=== PATIENT | male | born 1980 | race Caucasian/White ===

== ENCOUNTER 2018-11-24 06:22 | Emergency (ER) | payer OTHER ==
--- NOTE | 2018-11-24 06:25 | PDOC ---
History of Present Illness - General Chief Complaint: Allergic Reaction Stated Complaint: POSS ALLERGIC REACTION Time Seen by Provider: 11/24/18 06:24 - History of Present Illness Initial Comments: 11/24/18 06:29 This 38-year-old man,s/p gastric bypass bariatric surgery 08/14 presents with possible ALLERGIC reaction and also substernal chest pain that began soon after awakening at 4:00 AM today (He usually awakens at this hour). Patient states that since his bypass surgery, he has intermittent episodes of substernal chest pain. These have been found to be related to hypoglycemia. Most recent episode prior to today was 3 days ago when he presented to another ER. At that time, his blood sugar was found to be 47. Patient was not admitted and chest pain resolved. Although the patient had chest pain, he continued to prepare to go to work, including eating breakfast: He ate [place] yogurt with apricot and 2 glasses of orange juice (to treat any hypoglycemia that might be present). The patient states he had never eaten apricots before and as he was traveling to work began to feel his lips becoming numb. When he got to work he had a coworker administer his EpiPen to him. He denies difficulty swallowing/ shortness breath/rash and lip numbness has improved. Besides intermittent substernal chest pain, the patient has frequent nausea/ vomiting after meals. He has seen his bariatric surgeon in the last month and was told that he would likely need an endoscopic revision of the gastric outlet. Follow-up is scheduled for next week. Cardiac risk factors: Positive for family history of (father had first AR at age 35); negative for HTN/DM/smoking/HLD No daily medications; OTC naproxen every other day for headaches ALLERGIES: NO KNOWN DRUG ALLERGIES; food ALLERGIES as above PMH: History of morbid obesitylost 140 pounds postoperatively Severe asthma preoperatively; resolved since bypass prediabetic preoperatively Abdominoplasty 08/16 Past History - Past Medical History Allergies/Adverse Reactions: Allergies Allergy/AdvReac Type Severity Reaction Status Date / Time apricot Allergy Verified 11/24/18 06:28 bridgette Allergy Verified 11/24/18 06:26 mayonnaise Allergy Verified 11/24/18 06:27 SEAFOOD Allergy Uncoded 11/24/18 06:27 Home Medications: Ambulatory Orders EPINEPHrine [Epinephrine] 0.3 mg IJ ONCE #1 box 11/24/18 Review of Systems - Review of Systems Able to Perform ROS?: Yes Comments:: 12 point review of systems is negative except for what is noted in the history of present illness *Physical Exam - Physical Exam Comments: GENERAL: Adult male, alert and oriented 3, in no acute distress; 120/74, 80/ min , 97.5F, pulse ox 100% on room air HEAD: Normal with no signs of trauma. EYES: PERRLA, EOMI, sclera anicteric, conjunctiva clear. ENT: Ears normal, nares patent, oropharynx clear without exudates. Moist mucous membranes. No significant lip/tongue/uvular edema; no stridor NECK: Normal range of motion, supple without lymphadenopathy, JVD, or masses. LUNGS: Breath sounds equal, clear to auscultation bilaterally. No wheezes, and no crackles. HEART:Regular rate and rhythm, normal S1 and S2 without murmur, rub or gallop. ABDOMEN:.normal bowel sounds No guarding,tenderness or rebound.No masses No distention. Well-healed horizontal surgical incision EXTREMITIES: Normal range of motion, no edema. No clubbing or cyanosis. No erythema, or tenderness. NEUROLOGICAL: Cranial nerves II through XII grossly intact. Normal speech. No focal neurological deficits. MUSCULOSKELETAL: Back non-tender to palpation, no CVA tenderness SKIN: Warm, Dry, normal turgor, no rashes or lesions noted. Twelve-lead electrocardiogram performed and preliminary interpretation by me: Normal sinus rhythm at 66 bpm; some sinus arrhythmia is present. [place], intervals and wave forms are all normal. No evidence of acute ST or T-wave abnormalities ED Treatment Course - LABORATORY CBC & Chemistry Diagram: 11/24/18 07:25 11/24/18 07:11 Medical Decision Making - Medical Decision Making 11/24/18 06:49 This 38-year-old man with a history of morbid obesity, 2 years s/p gastric bypass surgery and subsequent significant weight loss, presents with 2 problems : 1-substernal chest pain that patient typically has felt in the past when he has hypoglycemic 2-possible ALLERGIC reaction. Patient had new food (apricots) this morning and soon felt numbness in his lips. EpiPen given to patient by a coworker prior to presentation. Symptoms (lip numbness) resolving. Finger stick glucose 106. Patient had 2 glasses of orange juice and yogurt earlier. Chest pain improving since presentation Patient has one risk factor (family history for coronary artery disease). lab evaluation of CBC/Chemistry profile/troponin will be sent 11/24/18 07:02 Case signed out to incoming physician at change of shift *DC/Admit/Observation/Transfer Diagnosis at time of Disposition: Atypical chest pain - Discharge Dispostion Disposition: HOME Condition at time of disposition: Improved - Prescriptions Prescriptions: EPINEPHrine [Epinephrine] 0.3 mg IJ ONCE #1 box - Referrals Referrals: Charlene Muniz [Other] - Patient Instructions Printed Discharge Instructions: DI for Atypical Chest Pain Additional Instructions: Return to the emergency department immediately with ANY new, persistent or worsening symptoms. Please stop eating appricots - follow up with an allergy doctor. You MUST call and follow up with Dr. Muniz as scheduled for further evaluation of your symptoms. Results were discussed with you. Please make sure your doctor reviews the results of your emergency evaluation. If you had any xrays during your visit, it was read preliminarily by myself, a Radiologist will review it and if there are any additional findings we will call you. Print Language: DANISH - Post Discharge Activity
[2018-11-24 06:35] VITALS: BP 120/74; PULSE 80; TEMP 97.5; BMI 32.5
[2018-11-24 08:00] LABS: BASO % 0.6 % (0-2.0); EOS % 1.8 % (0-4.5); HEMATOCRIT 40.7 % (35.4-49); HEMOGLOBIN 13.2 GM/dl (11.7-16.9); LYMPH % 21.7 % (8-40); MCH 29.1 pg (25.7-33.7); MCHC 32.5 g/dl (32.0-35.9); MEAN CELL VOLUME 89.8 fl (80-96); MEAN PLT VOLUME 8.3 fl (7.5-11.1); MONO % 8.7 % (3.8-10.2); NEUT % 67.2 % (42.8-82.8); PLATELET COUNT 300 K/MM3 (134-434); RBC 4.54 M/mm3 (4.00-5.60); RDW 11.8 % (11.9-15.9); WHITE BLOOD COUNT 7.2 K/mm3 (4.0-10.8)
[2018-11-24 08:03] LABS: ALBUMIN 3.4 g/dl (3.4-5.0); ALK PHOS 116 U/L (45-117); ANION GAP 6 MMOL/L (8-16); BILIRUBIN,TOTAL 0.6 mg/dl (0.2-1); BLOOD UREA NITROGEN 12 mg/dl (7-18); CALCIUM 8.4 mg/dl (8.5-10); CHLORIDE 104 mmol/L (98-107); CO2 25 mmol/L (21-32); CREATININE 0.7 mg/dl (0.55-1.3); GLUCOSE,RANDOM 99 mg/dl (74-106); POTASSIUM 3.8 mmol/L (3.5-5.1); SGOT/AST 23 U/L (15-37); SGPT/ALT 23 U/L (13-61); SODIUM 135 mmol/L (136-145); TOT PROT 6.4 g/dl (6.4-8.2)
--- NOTE | 2018-11-24 09:18 | PDOC ---
*Physical Exam - Vital Signs Last Vital Signs Temp Pulse Resp BP Pulse Ox 97.5 F L 80 15 120/74 100 11/24/18 06:32 11/24/18 06:32 11/24/18 06:32 11/24/18 06:32 11/24/18 06:32 - Physical Exam Comments: 11/24/18 09:07 Pt signed out to me from Dr. Ro pt is a 38y M s/p gastric bypass and abdominoplasty presents with chest pain. Pt states he woke up this morning around 4 for work and started feeling a squeezing like chest pain that was intermittent and worsened when he went to work. He has had similar episodes of pain in the past since his gastric bypass and was associated with low blood sugar (last episode was on wednesday where hs BGM was 46 where he went to [facility] an evaluation and was discharged. It is thought that his hypoglycemia is associated with less PO intake - notes he can only tolerate very smalla pipo of food ('half a chldrens portion') but he eats approx 6 times a day - has followed up with his bariatric surgeon who was going to revise his bypass in the near future. today, after onset of his pain while at work, he ate an apricot yogurt as he thought it may be related to his blood sugar.. he then started feeling tingling around his mouth, on his forhead and finger tips, and gave himself an epipen as he thought the symptoms may be related to hypoglycemia. denies any associated sypmtoms with exertion ( notse he go to the gym every day to lift or do cardio and has never had these symtoms when exerting himself). notse that typically these sypmtoms resolve on their own. currently pt notse he feels improved general: no acute distress, well nourished card: rrr, no mrg pulm: no wheezing, no acute respiratory distress abd: soft nontender labs unremarkble including trops x 1 ekg wnl, no prior for comparison unclear if his tingling is an allergic reaction vs anxiety - but willhav ehim stop eating apricots until he follows up with an network support manager. will obtian repeat trop low suspicion for acs ?esophageal spasm? will continue to observe and anticpate dc if trop neg x2 pt has follow up appointment with his surgeon as wella s his PMD 11/24/18 10:48 ED Treatment Course - LABORATORY CBC & Chemistry Diagram: 11/24/18 07:25 11/24/18 07:11 - ADDITIONAL ORDERS Additional order review: Laboratory Results 11/24/18 11/24/18 11/24/18 07:25 07:11 06:45 Sodium 135 L Potassium 3.8 Chloride 104 Carbon Dioxide 25 Anion Gap 6 L BUN 12 Creatinine 0.7 Creat Clearance w eGFR 127.60 POC Glucometer 106 Random Glucose 99 Calcium 8.4 L Total Bilirubin 0.6 AST 23 ALT 23 Alkaline Phosphatase 116 Creatine Kinase 109 Troponin I < 0.03 Total Protein 6.4 Albumin 3.4 11/24/18 11/24/18 07:25 06:45 RBC 4.54 MCV 89.8 MCHC 32.5 RDW 11.8 L MPV 8.3 Neutrophils % 67.2 Lymphocytes % 21.7 Monocytes % 8.7 Eosinophils % 1.8 Basophils % 0.6 POC Glucometer 106 - RADIOLOGY Radiology Studies Ordered: Category Date Time Status CHEST PA & LAT [RAD] Stat Radiology 11/24/18 09:04 Ordered Medical Decision Making - Medical Decision Making 11/24/18 10:36 repeat trop neg pt feeling improved will dc with fu with pmd and his sugeon return percautions were discussed *DC/Admit/Observation/Transfer Diagnosis at time of Disposition: Atypical chest pain - Discharge Dispostion Disposition: HOME Condition at time of disposition: Improved Decision to Admit order: No - Prescriptions Prescriptions: EPINEPHrine [Epinephrine] 0.3 mg IJ ONCE #1 box - Referrals Referrals: Charlene Muniz [Other] - Patient Instructions Printed Discharge Instructions: DI for Atypical Chest Pain Additional Instructions: Return to the emergency department immediately with ANY new, persistent or worsening symptoms. Please stop eating appricots - follow up with an allergy doctor. You MUST call and follow up with Dr. Muniz as scheduled for further evaluation of your symptoms. Results were discussed with you. Please make sure your doctor reviews the results of your emergency evaluation. If you had any xrays during your visit, it was read preliminarily by myself, a Radiologist will review it and if there are any additional findings we will call you. Print Language: NORWEGIAN - Post Discharge Activity
[2018-11-24] MEDS ORDERED: ACETAMINOPHEN 325 MG TABLET (FP) PO ONE (10:03)
[2018-11-24] MEDS ORDERED: ACETAMINOPHEN 325 MG TABLET (FP) ONE (10:06)
--- NOTE | 2018-11-24 15:17 | EKG ---
Test Reason : Blood Pressure : / mmHG Vent. Rate : 066 BPM Atrial Rate : 066 BPM P-R Int : 142 ms QRS Dur : 102 ms QT Int : 406 ms P-R-T Axes : 051 058 039 degrees QTc Int : 425 ms NORMAL SINUS RHYTHM WITH SINUS ARRHYTHMIA NORMAL ECG NO PREVIOUS ECGS AVAILABLE Confirmed by TIESHA PRATER MD ([id number]) on 11/24/2018 3:17:10 PM Referred By: MD CASAREZ Confirmed By:TIESHA PRATER MD
== END 2018-11-24 11:04 | disposition home or self-care (01) ==
LOC: FER 06:22
DX: R07.89 Other chest pain (principal); Z98.84 Bariatric surgery status
CPT/HCPCS: 36415; 71046-TC-FY; 80053; 82550; 82962; 84484; 85025; 93005; 99283-25

== ENCOUNTER 2019-09-30 17:59 | Emergency (ER) | payer BC, OTHER ==
[2019-09-30] MEDS ORDERED: DIPHTH,PERTUSS(ACELL),TET 0.5 ML DISP.SYRIN IM ONE ×2 (18:07→18:23)
[2019-09-30] MEDS ORDERED: CLINDAMYCIN HCL 150 MG CAPSULE (FP) PO ONE (18:07)
[2019-09-30] MEDS ORDERED: CLINDAMYCIN HCL 150 MG CAPSULE (FP) ONE (18:22)
[2019-09-30 18:24] VITALS: BP 133/61; PULSE 87; TEMP 98.2; BMI 32.5
--- NOTE | 2019-09-30 18:44 | PDOC ---
History of Present Illness - General Chief Complaint: Injury Stated Complaint: RT KNEE LACERATION Time Seen by Provider: 09/30/19 18:01 - History of Present Illness Initial Comments: 09/30/19 18:39 39yo male with hx of htn/dm now off meds secondary gastric bypass sx presents for eval of R knee lac. Pt was cutting a tree down with an electric saw and was trying to pull the saw out of the tree and it flew back and cut his knee. Pt with a 3.5cm superficial lac to the medial aspect of the R knee. Pt with FROM of the knee. No joint pain. Last tetanus over 5 years ago. Pt denies all other complaints and injuries. Past History - Past Medical History Allergies/Adverse Reactions: Allergies Allergy/AdvReac Type Severity Reaction Status Date / Time amoxicillin Allergy Verified 09/30/19 18:01 apricot Allergy Verified 09/30/19 18:00 bridgette Allergy Verified 09/30/19 18:00 mayonnaise Allergy Verified 09/30/19 18:00 SEAFOOD Allergy Uncoded 09/30/19 18:00 Home Medications: Ambulatory Orders Clindamycin [Cleocin -] 450 mg PO Q8H #63 capsule 09/30/19 Asthma: Yes COPD: No - Surgical History GI Surgery: Yes (2016 GASTRIC BYPASS) - Immunization History Immunization Up to Date: Yes - Psycho Social/Smoking Cessation Hx Smoking History: Never smoked Have you smoked in the past 12 months: No Number of Cigarettes Smoked Daily: 0 Hx Alcohol Use: No Drug/Substance Use Hx: No Review of Systems - Review of Systems Able to Perform ROS?: Yes Is the patient limited Polish proficient: No Constitutional: No: Chills, Fever HEENTM: No: Symptoms Reported Respiratory: No: Symptoms reported Cardiac (ROS): No: Symptoms Reported ABD/GI: No: Symptoms Reported : No: Symptoms Reported Musculoskeletal: Yes: Other (R knee laceration). No: Joint Pain Integumentary: Yes: Other (R medial knee 3.5cm lac) Neurological: No: Headache, Paresthesia, Ataxia All Other Systems: Reviewed and Negative *Physical Exam - Vital Signs Last Vital Signs Temp Pulse Resp BP Pulse Ox 98.2 F 87 20 133/61 100 09/30/19 18:00 09/30/19 18:00 09/30/19 18:00 09/30/19 18:00 09/30/19 18:00 - Physical Exam General Appearance: Yes: Nourished, Appropriately Dressed. No: Apparent Distress HEENT: positive: EOMI, Normal Voice Neck: positive: Supple Respiratory/Chest: positive: Lungs Clear, Normal Breath Sounds. negative: Respiratory Distress Cardiovascular: positive: Regular Rhythm, Regular Rate, S1, S2. negative: Edema Gastrointestinal/Abdominal: positive: Soft. negative: Guarding, Rebound, Tenderness Musculoskeletal: positive: Normal Inspection Extremity: positive: Normal Capillary Refill, Normal Range of Motion, Other ( 3.5 cm linear laceration to the medial aspect of the knee, superfical laceration , no joint involvment, FROM of the joint, lac through subcutaneous tissue, not through fascia or muscle) Integumentary: positive: Other (medial knee lac) Neurologic: positive: Fully Oriented, Alert, Normal Mood/Affect Procedures - Laceration/Wound Repair Right Medial Knee Wound Length: 2.6 to 5.0 cm Wound Explored: contaminated Wound's Depth, Shape: superficial, linear Irrigated w/ Saline: Yes Anesthesia: 1% Lidocaine Amount of Anesthetic (ccs): 4 Wound Debrided: moderate Suture Size/Type: 4:0, nylon Number of Sutures: 7 Layer Closure: No Sterile Dressing Applied: Yes Splint Applied: Yes (stone wrap, knee immobilizer) Progress: 09/30/19 18:44 Pt tolerated the procedure well. ED Treatment Course - Medications Given in the ED: ED Medications Discontinued Medications Generic Name Dose Route Start Last Admin Trade Name Freq PRN Reason Stop Dose Admin Clindamycin HCl 450 mg 09/30/19 18:07 09/30/19 18:25 Cleocin - PO 09/30/19 18:08 450 mg ONCE ONE Administration Diphtheria/Tetanus/Acell Pertussis 0.5 ml 09/30/19 18:07 09/30/19 18:24 Boostrix - IM 09/30/19 18:08 0.5 ml .ONCE ONE Administration Medical Decision Making - Medical Decision Making 09/30/19 18:44 a/p: 39yo male with R medial knee 3.5cm lac -linear lac repaired -given moderate amount of debridement and contaminated wound will update tetanus and start abx -discussed wound care re-eval at 48hrs -discussed follow up with PMD -discussed local wound care and suture management -discussed all reasons to return to the ER -pt stable for dc to home Discharge - Discharge Information Problems reviewed: Yes Clinical Impression/Diagnosis: Laceration of right knee Condition: Stable Disposition: HOME - Admission No - Additional Discharge Information Prescriptions: Clindamycin [Cleocin -] 450 mg PO Q8H #63 capsule - Follow up/Referral - Patient Discharge Instructions Patient Printed Discharge Instructions: DI for Laceration Repair, How to Use a Knee Immobilizer Additional Instructions: Please keep the wound dry for 24 hours. You may wash the wound in the shower with soap and water- no scrubbing and pat dry. Please wear the immobilizer as instructed to ensure you don't bend your knee and rip out the sutures. Please apply bacitracin or neosporin to the wound and keep the wound clean and dry. Please return to the ER or your PMD on Wednesday for a wound check. Please return in 1 week for suture removal. Please take all antibiotics as prescribed. Please return to the ER with any further concerns or complaints. - Post Discharge Activity
== END 2019-09-30 18:58 | disposition home or self-care (01) ==
LOC: FER 17:59
PROC: 0HQKXZZ Repair Right Lower Leg Skin, External Approach (ICD-10-PCS; principal; 2019-09-30)
PROC: 2W3QX1Z Immobilization of Right Lower Leg using Splint (ICD-10-PCS; 2019-09-30)
PROC: 3E0234Z Introduction of Serum, Toxoid and Vaccine into Muscle, Percutaneous Approach (ICD-10-PCS; 2019-09-30)
DX: S81.011A Laceration without foreign body, right knee, initial encounter (principal); W29.8XXA Contact with other powered hand tools and household machinery, initial encounter; Y93.89 Activity, other specified; Y92.89 Other specified places as the place of occurrence of the external cause; Z88.8 Allergy status to other drugs, medicaments and biological substances; Z91.013 Allergy to seafood; Z91.018 Allergy to other foods; Z98.84 Bariatric surgery status; J45.909 Unspecified asthma, uncomplicated
CPT/HCPCS: 90715; 99282-25

== ENCOUNTER 2020-08-04 12:49 | Emergency (ER) | payer BC ==
[2020-08-04 12:55] VITALS: BP 124/80; PULSE 71; TEMP 98.2; BMI 35.2
[2020-08-04] MEDS ORDERED: IBUPROFEN 600 MG TABLET (FP) PO ONE ×2 (13:12→13:32)
[2020-08-04] MEDS ORDERED: LIDOCAINE 5% TOPICAL PATCH TP ONE (13:12)
[2020-08-04] MEDS ORDERED: LIDOCAINE 5% TOPICAL PATCH ONE (13:33)
[2020-08-04] MEDS ORDERED: LIDOCAINE PATCH REMOVAL MC SCH (22:00)
== END 2020-08-04 14:10 | disposition home or self-care (01) ==
LOC: FER 12:49
DX: M25.511 Pain in right shoulder (principal)
CPT/HCPCS: 73030-TC-RT-FY; 99283-25

== ENCOUNTER 2021-11-02 15:16 | Emergency (ER) | payer BC ==
[2021-11-02 15:28] VITALS: BMI 37.5
[2021-11-02] MEDS ORDERED: LACTATED RINGERS SOLUTION 1000 ML INFUS.BAG IV ONE (15:51)
[2021-11-02 16:04] LABS: CALCIUM 8.6 mg/dl (8.5-10)
[2021-11-02 16:10] LABS: ALBUMIN 3.6 g/dl (3.4-5.0); BILIRUBIN,TOTAL 0.4 mg/dl (0.2-1); CREATININE 0.8 mg/dl (0.55-1.3); MAGNESIUM 1.8 mg/dL (1.8-2.4)
[2021-11-02 16:33] LABS: BASO % 0.4 % (0-2.0); EOS % 0.6 % (0-4.5); HEMATOCRIT 40.5 % (35.4-49); HEMOGLOBIN 13.5 GM/dL (11.7-16.9); LYMPH % 12.1 % (8-40); MCH 28.8 pg (25.7-33.7); MCHC 33.3 g/dl (32.0-35.9); MEAN CELL VOLUME 86.3 fl (80-96); MEAN PLT VOLUME 8.2 fl (7.5-11.1); MONO % 7.2 % (3.8-10.2); NEUT % 79.7 % (42.8-82.8); PLATELET COUNT 310 10^3/uL (134-434); RBC 4.69 M/mm3 (4.00-5.60); RDW 12.4 % (11.9-15.9); WHITE BLOOD COUNT 12.3 K/mm3 (4.0-10.0)
[2021-11-02 17:13] VITALS: BP 110/58; PULSE 72; TEMP 98.4
== END 2021-11-02 19:07 | disposition home or self-care (01) ==
LOC: FER 15:16
DX: R42 Dizziness and giddiness (principal); E86.0 Dehydration
CPT/HCPCS: 36415; 71046-TC-FY; 80053; 82962; 83735; 84443; 84484; 85025; 93005; 99285-25